=== PATIENT | male | born 1950 | race Two or more races ===

== ENCOUNTER 2016-02-28 22:10 | Emergency (ER) | payer MEDICARE, MEDICAID ==
[2016-02-28 22:36] VITALS: TEMP 98.4; BMI 29.8
--- NOTE | 2016-02-28 23:09 | EDPRACDOC ---
<Paul Carrillo - Last Filed: 02/29/16 00:22> - General Information Mode Of Arrival: Car - History of Present Illness Onset: [employer] HPI: C/o pinching chest pain, sob, generalized weakness, dizzyness, blurred vision, LUTHER, numb tingling hands, x 3 days. Chest pain is left sided, pinching, lasts mins, and is often exertional and associated with sob, and dizzyness. Cp currently described as a small pinch while sitting in bed. Also c/o some inc urinary freq. Pt has hx of HDL, possible DM, some unknown heart dz with last stress test around 6 yrs ago, POS fam hx for heart dz. Denies fever, N/V/D, sore throat, change in BM. Surgical hx most recent = April 15- for foot surgery. Symptoms Started: Reports: Suddenly, At Rest, With light exertion Symptoms Description: Constant Weakness: Bilateral: Generalized Symptoms: Reports: Change of vision, Imbalance, Weak Symptom Severity: Reports: Unable to performs ADL's Associated signs and symptoms:: Reports: Chest pain, Headache <Tanvir Santiago - Last Filed: 02/29/16 03:50> - General Information Chief Complaint: Generalized Weakness Stated Complaint: BODY ACHE, DIZZINESS & SHOB Home Medications: Home Medications Aspirin [Ecotrin] 81 mg PO DAILY 03/06/15 Atorvastatin Calcium [Lipitor] 10 mg PO DAILY 03/06/15 Omeprazole [Prilosec] 20 mg PO DAILY 03/06/15 Hydrocodone Bit/Acetaminophen [[place] 5-325 Tablet] 1 each PO Q4-6H PRN #30 tab 05/12/15 Tamsulosin HCl [Flomax] 1 tab PO DAILY 05/12/15 Lorazepam [Ativan] 1 mg PO DAILY #20 tab 02/29/16 Allergies/Adverse Reactions: Allergies Allergy/AdvReac Type Severity Reaction Status Date / Time No Known Allergies Allergy Verified 05/12/15 10:24 ED Past Medical History - History Reviewed Yes Nurses notes reviewed and agree except as marked - Patient Medical History GI/ History: Reports: Urinary Tract Infection, Kidney Stones Surgical History: Reports: Cholecystectomy, Hernia Surgery, Tonsillectomy/ Adnoidectomy - Family Medical History Reports: Cancer (FATHER), Cardiac Disorders (BROTHER) - Social Medical History Smoking Status: Former smoker <Tanvir Santiago - Last Filed: 02/29/16 03:50> EDM Review of Systems - Review of Systems ROS Negative Except as Marked: Yes All systems reviewed and were negative except as marked Respiratory: Shortness of Breath Cardiovascular: Chest Pain Genitourinary: Frequency Neurological: Dizziness, Numbness (bilat hands), Weakness <Tanvir Santiago - Last Filed: 02/29/16 03:50> - Physical Exam Last recorded Vital Signs: Last Vital Signs Temp 98.4 F 02/28/16 22:30 Pulse 62 02/28/16 22:30 Resp 20 02/28/16 22:30 BP 170/86 02/28/16 22:30 Pulse Ox 98 02/28/16 22:30 Oxygen Pulse Oxygen Saturation 98 O2 Device Room Air Oxygen Flow Rate Fraction of Inspired Oxygen ( FIO2) <CarrilloPaul - Last Filed: 02/29/16 00:22> - Physical Exam Constitutional: No apparent distress, Alert Oriented to: Time, Person, Place Last recorded Vital Signs: Last Vital Signs Temp 98.4 F 02/28/16 22:30 Pulse 62 02/28/16 22:30 Resp 20 02/28/16 22:30 BP 170/86 02/28/16 22:30 Pulse Ox 98 02/28/16 22:30 Oxygen Pulse Oxygen Saturation 98 O2 Device Room Air Oxygen Flow Rate Fraction of Inspired Oxygen ( FIO2) - HEENT Head: Normal Eye Exam: negative: Conjunctival Injection, Scleral Icterus Oropharynx: negative: Drooling TMJ: Normal Nose: No Symptoms Reported Neck: Normal - Respiratory/Cardiovascular Respiratory: Normal - CTA Cardiovascular: Normal - GI Auscultation: Normal Palpation: Normal Tenderness: Non tender - Musculoskeletal Back: Normal Extremities: Normal - Integumentary Skin: Normal - Neurologic Mood Description: Normal Thought: Coherent Perception: Normal <Tanvir Santiago - Last Filed: 02/29/16 03:50> - Neurologic Orientation: Time, Person, Place Speech: Fluent Coginitive: Normal Affect: Normal Thought: Coherent Perception: Normal <Tanvir Santiago - Last Filed: 02/29/16 03:50> - Re-evaluation Re-evaluation 1 Re-evaluation Time: 00:22 (DURING MY MY DISCUSSION PATIENT NOTES CP IS INTERMITTENT AND LASTING SECONDS ASSOCIATED WITH NUMBNESS IN HIS ARMS AND WORSE WHEN HE HAS AN ARGUMENT.) - Results 02/28/16 23:16 02/28/16 23:16 WBC 9.0 xk/uL (3.8-10.8) 02/28/16 23:16 RBC 5.02 xM/uL (4.70-6.10) 02/28/16 23:16 Hgb 16.1 g/dL (14.0-18.0) 02/28/16 23:16 Hct 46.5 % (42-52) 02/28/16 23:16 MCV 93 fL (80-94) 02/28/16 23:16 MCH 32.0 pg (27-32) 02/28/16 23:16 MCHC 34.7 g/dl (33-36) 02/28/16 23:16 RDW 13.3 % (11.5-14.5) 02/28/16 23:16 Plt Count 219 xk/uL (130-400) 02/28/16 23:16 MPV 8.6 fL (7.4-10.4) 02/28/16 23:16 Neut % (Auto) 59.4 % (45-76) 02/28/16 23:16 Lymph % (Auto) 29.5 % (17-44) 02/28/16 23:16 Wilkin % (Auto) 7.6 % (3-10) 02/28/16 23:16 Eos % (Auto) 2.5 % (0-5) 02/28/16 23:16 Baso % (Auto) 1.0 % (0-2) 02/28/16 23:16 Absolute Neuts (auto) 5.31 xk/uL (1.7-8.2) 02/28/16 23:16 Absolute Lymphs (auto) 2.61 xk/uL (0.65-4.75) 02/28/16 23:16 PT 10.2 SEC (9.2-11.2) 02/28/16 23:16 INR 1.0 02/28/16 23:16 APTT 23.0 SEC (22-35) 02/28/16 23:16 Sodium 142 mEq/L (137-146) 02/28/16 23:16 Potassium 4.4 mEq/L (3.5-5.1) 02/28/16 23:16 Chloride 103 mEq/L (98-107) 02/28/16 23:16 Carbon Dioxide 27 mMOL/L (22-33) 02/28/16 23:16 Anion Gap 16 mEq/L (8-16) 02/28/16 23:16 BUN 13 MG/DL (9-20) 02/28/16 23:16 Creatinine 1.00 MG/DL (0.66-1.25) 02/28/16 23:16 Estimated GFR (MDRD) > 60 mL/min (>=60) 02/28/16 23:16 Glucose 116 MG/DL (70-99) H 02/28/16 23:16 Calculated Osmolality 274 MOs/Kg (270-290) 02/28/16 23:16 Calcium 9.7 MG/DL (8.4-10.2) 02/28/16 23:16 Total Bilirubin 0.6 MG/DL (0.2-1.3) 02/28/16 23:16 AST 26 IU/L (17-59) 02/28/16 23:16 ALT 40 IU/L (21-72) 02/28/16 23:16 Alkaline Phosphatase 100 IU/L (50-160) 02/28/16 23:16 Troponin I < 0.01 ng/mL (<.04) 02/28/16 23:16 Mtv-Q-Yhqlorgqnqz Pept 74 pg/mL (0-900) 02/28/16 23:16 Total Protein 7.8 G/DL (6.3-8.2) 02/28/16 23:16 Albumin 4.6 G/DL (3.5-5.0) 02/28/16 23:16 Lab Results 02/28/16 02/28/16 02/28/16 23:16 23:16 23:16 WBC 9.0 RBC 5.02 Hgb 16.1 Hct 46.5 MCV 93 MCH 32.0 MCHC 34.7 RDW 13.3 Plt Count 219 MPV 8.6 Neut % (Auto) 59.4 Lymph % (Auto) 29.5 Wilkin % (Auto) 7.6 Eos % (Auto) 2.5 Baso % (Auto) 1.0 Absolute Neuts (auto) 5.31 Absolute Lymphs (auto) 2.61 PT 10.2 INR 1.0 APTT 23.0 Sodium 142 Potassium 4.4 Chloride 103 Carbon Dioxide 27 Anion Gap 16 BUN 13 Creatinine 1.00 Estimated GFR (MDRD) > 60 Glucose 116 H Calculated Osmolality 274 Calcium 9.7 Total Bilirubin 0.6 AST 26 ALT 40 Alkaline Phosphatase 100 Troponin I < 0.01 Yoh-I-Pilnjzowwev Pept 74 Total Protein 7.8 Albumin 4.6 <Paul Carrillo - Last Filed: 02/29/16 00:22> - Results 02/28/16 23:16 02/28/16 23:16 - EKG EKG #1 EKG Time: 23:14 -: Yes EKG interpreted by me Rate: bpm: 60 Rhythm: NSR ST: Normal Comparison: 01/26/10 (sinus imani) - Diagnostic Imaging Chest Image interpreted by: Radiologist EXAM: CHEST 2 VIEW COMPARISON: 01/25/2010 FINDINGS: Normal heart size and pulmonary vascularity. Mild tortuosity of thoracic aorta. Lungs clear. No pleural effusion or pneumothorax. Bones unremarkable. Surgical clips upper abdomen anteriorly, by prior CT post cholecystectomy. IMPRESSION: No acute abnormalities. Electronically Signed By: Delfin Calixto M.D. On: 02/28/2016 23:51 <Tanvir Santiago - Last Filed: 02/29/16 03:50> - Departure Yes I personally saw and evaluated the patient. Disposition: Home Education/Counseling Given To: Patient Education/Counseling Given Regarding: Diagnosis, Treatment, Prognosis <Paul Carrillo - Last Filed: 02/29/16 00:22> Decision Time to Discharge: 03:28 <Tanvir Santiago - Last Filed: 02/29/16 03:50> - Departure Condition: Stable Final Diagnosis: Atypical chest pain Instructions: Weakness (General), Chest Pain (ED), Chest Wall Pain Referrals: None,No Provider [Primary Care Provider] - One Week Sky Michele MD [Staff Physician] - One Week Prescriptions: Lorazepam [Ativan] 1 mg PO DAILY #20 tab Additional Instructions: Follow up with cardiology. The name of one has been provided for you. Return to ED for any new or worsening symptoms.
[2016-02-28 23:35] LABS: BLOOD UREA NITROGEN 13 MG/DL (9-20); CALCIUM 9.7 MG/DL (8.4-10.2); CALCULATED OSMOLALITY 274 MOs/Kg (270-290); CHLORIDE 103 mEq/L (98-107); GLUCOSE 116 MG/DL (70-99); SODIUM LEVEL 142 mEq/L (137-146); TOTAL PROTEIN 7.8 G/DL (6.3-8.2)
[2016-02-28 23:36] LABS: AUTOMATED EOSINOPHIL 2.5 % (0-5); AUTOMATED LYMPH 29.5 % (17-44); AUTOMATED MONOCYTE 7.6 % (3-10); AUTOMATED NEUTROPHIL 59.4 % (45-76); MPV 8.6 fL (7.4-10.4)
--- NOTE | 2016-02-28 23:54 | DIRPT ---
CLINICAL DATA: Dizziness for 3 days worse since this morning, blurred vision, shortness of breath, headache, numbness in hands and wrists, pinching pain in chest, weakness EXAM: CHEST 2 VIEW COMPARISON: 01/25/2010 FINDINGS: Normal heart size and pulmonary vascularity. Mild tortuosity of thoracic aorta. Lungs clear. No pleural effusion or pneumothorax. Bones unremarkable. Surgical clips upper abdomen anteriorly, by prior CT post cholecystectomy. IMPRESSION: No acute abnormalities. Electronically Signed By: Delfin Calixto M.D. On: 02/28/2016 23:51
[2016-02-29] MEDS ORDERED: ASPIRIN 325 MG TAB PO ONE (00:10)
[2016-02-29] MEDS ORDERED: NITROGLYCERINE 2 % OINTMENT PACK TOP ONE (00:10)
[2016-02-29 00:16] LABS: LEUKOCYTES/URINE NEG (NEGATIVE); NITRITE/URINE NEG (NEGATIVE); RBC/URINE 0-2 (0-2); URINE OCCULT BLOOD NEG (NEG/TRACE); WBC/URINE 0-2 (0-2)
[2016-02-29 03:44] VITALS: BP 151/82; PULSE 72
== END 2016-02-29 03:45 | disposition home or self-care (01) ==
LOC: ED 22:10
DX: R07.89 Other chest pain (principal)
CPT/HCPCS: 36415; 71020; 80053; 81001; 83880; 84484; 85025; 85610; 85730; 93005; 99284; A9270; J3490